=== PATIENT | male | born 1985 | race American Indian/Alaskan Native ===

== ENCOUNTER 2016-10-03 12:48 | Emergency (ER) | payer SELFPAY ==
[2016-10-03 14:23] VITALS: BP 124/83
[2016-10-03] MEDS ORDERED: NACL 0.9% 1000 ML 1,000 ML IV ONE (14:23)
[2016-10-03 15:38] LABS: Alanine Aminotransferase 21 units/L (7-56); Albumin/Globulin Ratio 1.5 %; Alkaline Phosphatase 67 units/L (35-129); Anion Gap 23 mmol/L; BUN/Creatinine Ratio 16.25; Blood Urea Nitrogen 13 mg/dL (9-20); Calcium 10.4 mg/dL (8.4-10.2); Carbon Dioxide 19 mmol/L (22-30); Chloride 97.9 mmol/L (98-107); Glucose 107 mg/dL (75-100); Lipase 19 units/L (13-60); Potassium 4.1 mmol/L (3.6-5.0); Sodium 136 mmol/L (137-145); Total Protein 8.3 g/dL (6.3-8.2)
[2016-10-03 15:47] LABS: Basophils % (Auto) 0.3 % (0.0-1.8); Hematocrit 43.4 % (35.5-45.6); Hemoglobin 14.5 gm/dl (11.8-15.2); Mean Corpuscular HGB Conc 34 % (32-34); Mean Corpuscular Hemoglobin 31 pg (28-32); Mean Corpuscular Volume 93 fl (84-94); Platelet Count 258 K/mm3 (140-440); Red Blood Count 4.64 M/mm3 (3.65-5.03); White Blood Count 7.4 K/mm3 (4.5-11.0)
[2016-10-03 15:54] LABS: INR 1.03 (0.87-1.13)
[2016-10-03 15:55] LABS: Partial Thromboplastin Time 30.3 Sec. (24.2-36.6)
--- NOTE | 2016-10-10 10:22 | ED Elopement Review ---
ED Pt Elopement review - Results review Lab results: Laboratory Tests 10/03/16 10/03/16 10/03/16 14:48 14:48 14:48 WBC 7.4 RBC 4.64 Hgb 14.5 Hct 43.4 MCV 93 MCH 31 MCHC 34 RDW 14.0 Plt Count 258 Lymph % (Auto) 11.[address] [place] % (Auto) 4.7 Eos % (Auto) 0.0 Baso % (Auto) 0.3 Lymph # 0.[address] [place] # 0.3 Eos # 0.0 Baso # 0.0 Seg Neutrophils % 84.0 H Seg Neutrophils # 6.2 PT 13.4 INR 1.03 APTT 30.3 Sodium 136 L Potassium 4.1 Chloride 97.9 L Carbon Dioxide 19 L Anion Gap 23 BUN 13 Creatinine 0.8 Estimated GFR > 60 BUN/Creatinine Ratio 16.25 Glucose 107 H Calcium 10.4 H Total Bilirubin 0.70 AST 25 ALT 21 Alkaline Phosphatase 67 Total Protein 8.3 H Albumin 5.0 Albumin/Globulin Ratio 1.5 Lipase 19 Blood Type Antibody Screen [place] Antibody Screen 10/03/16 14:48 WBC RBC Hgb Hct MCV MCH MCHC RDW Plt Count Lymph % (Auto) [place] % (Auto) Eos % (Auto) Baso % (Auto) Lymph # [place] # Eos # Baso # Seg Neutrophils % Seg Neutrophils # PT INR APTT Sodium Potassium Chloride Carbon Dioxide Anion Gap BUN Creatinine Estimated GFR BUN/Creatinine Ratio Glucose Calcium Total Bilirubin AST ALT Alkaline Phosphatase Total Protein Albumin Albumin/Globulin Ratio Lipase Blood Type A POSITIVE Antibody Screen TNR [place] Antibody Screen Negative - Call Back decision Pt Call Back Decision: No action required
== END 2016-10-03 20:00 | disposition left against medical advice (07) ==
LOC: ED 12:48
DX: K92.0 Hematemesis (principal); Z53.21 Procedure and treatment not carried out due to patient leaving prior to being seen by health care provider
CPT/HCPCS: 36415; 80053; 83690; 85025; 85610; 85730; 86850; 86900; 86901